=== PATIENT | male | born 1945 | race Caucasian/White ===

== ENCOUNTER 2017-10-12 08:50 | Emergency (ER) | payer MEDICARE, BC ==
[~2017-10-12] VITALS: Ht 177.8 cm; Wt 99.5 kg
[2017-10-12 09:00] VITALS: PULSE 87; RESP 16; TEMP 98.7; O2SAT 97
[2017-10-12] MEDS ORDERED: AMLO10TA2 PO (09:54)
[2017-10-12] MEDS ORDERED: LIDOCAINE 2%/EPINEPHrine 1:100,000 20ML MDV NERV BLOCK ONE (10:15)
[2017-10-12] MEDS ORDERED: BACT800T5 PO (10:45)
[2017-10-12] MEDS ORDERED: NORC5TAB PO (10:46)
--- NOTE | 2017-10-12 10:46 | PD ---
HPI . Skin problem Chief Complaint: Skin Problem Time Seen by Provider: 09:56 Travel History International Travel<30 days: No Contact w/Intl Traveler<30days: No Traveled to known affect area: No History of Present Illness HPI This patient presents with a chief complaint of an abscess in his right groin. Onset was 5 days ago. It is getting progressively worse and became acutely worse starting last night. He states that he squeezed it and that it drained a lot of malodorous, bloody-looking pus. He states that his pain is actually better since it drained. He has not run any fever or had any other systemic symptoms. PFSH Past Medical History Hypertension: Yes Tetanus Vaccination: > 5 Years Influenza Vaccination: Yes Past Surgical History Appendectomy: Yes Social History Alcohol Use: Yes (SOCIAL) Tobacco Use: Yes (1/2 PPD) Substance Use: No Allergies-Medications (Allergen,Severity, Reaction): Coded Allergies: No Known Allergies (Unverified , 10/12/17) Reported Meds & Prescriptions Reported Meds & Active Scripts Active [place] (Hydrocodone-Acetaminophen) 5 Mg-325 Mg Tab 1 Tab PO Q4H PRN Bactrim DS (Sulfamethoxazole-Trimethoprim) 800-160 Mg Tab 1 Tab PO BID Reported Amlodipine (Amlodipine Besylate) 10 Mg Tab 10 Mg PO DAILY Review of Systems Except as stated in HPI: all other systems reviewed are Neg Physical Exam Narrative GENERAL: Awake and alert and in no acute distress. SKIN: Warm and dry. Erythema and induration in the right groin. No crepitus. There is a punctate wound where it has been draining. HEAD: Normocephalic/atraumatic. EYES: Pupils are equal. Extraocular movements are intact. NECK: Normal range of motion. Supple. CARDIOVASCULAR: Regular rate and rhythm. RESPIRATORY: Nonlabored respirations. Normal sats. MUSCULOSKELETAL: Atraumatic. Normal muscle tone. NEUROLOGICAL: A and O 3. Nonfocal. PSYCHIATRIC: Appropriate mood and affect. Data Data Last Documented VS Vital Signs Date Time Temp Pulse Resp B/P (MAP) Pulse Ox O2 Delivery O2 Flow Rate FiO2 10/12/17 09:00 98.7 87 16 97 Orders Orders Lidocai-Epi 2%-1:100,000 Inj (Xylocaine- (10/12/17 10:15) [facility] Medical Decision Making Medical Screen Exam Complete: Yes Emergency Medical Condition: Yes Differential Diagnosis My differential diagnosis of abscess includes but is not limited to abscess, cyst, lipoma Narrative Course This patient presents with an abscess in his right groin. It has drained some prior to presentation. There is no evidence of gangrene such as crepitus. He does not have any systemic complaints. The abscess will be drained. He will be discharged with antibiotics and instructions to return in 2 days for a recheck. E-Forcse has been queried and reviewed. He is being discharged with a prescription for [place]. Procedures Procedure Narrative INCISION AND DRAINAGE OF ABSCESS: The area was prepped. A subcutaneous wheal of 1 % Xylocaine with epinephrine with a total number 15 mL was used to anesthetize the area properly. A number 11 scalpel was used to make a 1-cm incision across the most fluctuant area of the abscess. The abscess was drained and complex loculations were broken down. There was no significant purulent drainage. There were significant adhesions which were lysed. The wound was copiously irrigated with saline. The wound was packed then dressed. Patient advised to have packing removed in two days. Diagnosis Primary Impression: Abscess of right groin Patient Instructions: Abscess Incision and Drainage (DC), General Instructions Additional Instructions: Return in 2 days for recheck. Return sooner if you start getting worse. Med/Other Pt SpecificInfo: Prescription(s) given Scripts Hydrocodone-Acetaminophen ([place]) 5 Mg-325 Mg Tab 1 TAB PO Q4H Y for PAIN, #10 TAB 0 Refills Prov: Maida Menon MD 10/12/17 Sulfamethoxazole-Trimethoprim (Bactrim DS) 800-160 Mg Tab 1 TAB PO BID for Infection, #20 TAB 0 Refills Prov: Maida Menon MD 10/12/17 Disposition: 01 DISCHARGE HOME Condition: Stable Maida Menon MD Oct 12, 2017 10:46
[2017-10-12 11:00] VITALS: BP 167/81
[2017-10-12] MEDS ORDERED: SULFAMETHOXAZOLE-TRIMETHOPRIM DS 800-160 MG TAB PO ONE (11:00)
[2017-10-12] MEDS ORDERED: ACETAMINOPHEN/HYDROcodone 325 MG/5 MG TAB PO ONE (11:00)
== END 2017-10-12 11:32 | disposition home or self-care (01) ==
LOC: PHED 08:50
DX: L02.214 Cutaneous abscess of groin (principal); F17.200 Nicotine dependence, unspecified, uncomplicated; I10 Essential (primary) hypertension
CPT/HCPCS: 10060

== ENCOUNTER 2017-10-14 07:34 | Emergency (ER) | payer MEDICARE, BC ==
[~2017-10-14 07:34] MED LIST: AMLO10TA2 PO; BACT800T5 PO; NORC5TAB PO
[2017-10-14 07:38] VITALS: BP 137/92; PULSE 93; RESP 16; TEMP 98.9; O2SAT 95
--- NOTE | 2017-10-14 08:04 | PD ---
HPI Chief Complaint: Wound/Suture/Staple Re-Check Time Seen by Provider: 07:50 Travel History International Travel<30 days: No Contact w/Intl Traveler<30days: No Traveled to known affect area: No History of Present Illness HPI Patient is a 72 year old male who comes in to have the wound in his groin checked. He was here two days ago and had an abscess drained in the area. He has been taking antibiotics since then. He says overall, he feels like it has improved. He denies fever or chills. He says it [place] 5 [place] [address] He says it started as a little pimple and he tried to pop it. He denies abdominal pain, nausea or vomiting. He says he was taking hydrocodone for the pain, but stopped yesterday. Severity is mild. PFSH Past Medical History Diminished Hearing: No Hypertension: Yes Influenza Vaccination: Yes ?: Not Past Surgical History Appendectomy: Yes Social History Alcohol Use: Yes (SOCIAL) Tobacco Use: Yes (1/2 PPD) Substance Use: No Allergies-Medications (Allergen,Severity, Reaction): Coded Allergies: No Known Allergies (Unverified , 10/14/17) Reported Meds & Prescriptions Reported Meds & Active Scripts Active [place] (Hydrocodone-Acetaminophen) 5 Mg-325 Mg Tab 1 Tab PO Q4H PRN Bactrim DS (Sulfamethoxazole-Trimethoprim) 800-160 Mg Tab 1 Tab PO BID Reported Amlodipine (Amlodipine Besylate) 10 Mg Tab 10 Mg PO DAILY Review of Systems Except as stated in HPI: all other systems reviewed are Neg General / Constitutional: No: Fever, Chills HENT: No: Headaches, Lightheadedness Cardiovascular: No: Chest Pain or Discomfort Respiratory: No: Shortness of Breath Gastrointestinal: No: Nausea, Vomiting, Abdominal Pain Skin: Positive Lesions Neurologic: No: Weakness, Dizziness Physical Exam Narrative GENERAL: Awake and alert, in no acute distress. SKIN: Open abscess in the right groin. No surrounding erythema or warmth, no active drainage. Large area of induration surrounding the abscess. Tender to palpation. HEAD: Atraumatic. Normocephalic. EYES: Pupils equal and round. No scleral icterus. No injection or drainage. ENT: Mucous membranes pink and moist. NECK: Trachea midline. No JVD. CARDIOVASCULAR: Regular rate and rhythm. No murmur appreciated. RESPIRATORY: No accessory muscle use. Clear to auscultation. Breath sounds equal bilaterally. GASTROINTESTINAL: Abdomen soft, non-tender, nondistended. MUSCULOSKELETAL: No obvious deformities. No clubbing. No cyanosis. No edema. NEUROLOGICAL: Awake and alert. No obvious cranial nerve deficits. Motor grossly within normal limits. Normal speech. PSYCHIATRIC: Appropriate mood and affect; insight and judgment normal. Data Data Last Documented VS Vital Signs Date Time Temp Pulse Resp B/P (MAP) Pulse Ox O2 Delivery O2 Flow Rate FiO2 10/14/17 09:35 80 16 142/70 (94) 96 Room Air 10/14/17 07:38 98.9 Orders Orders Complete Blood Count With Diff (10/14/17 07:54) Comprehensive Metabolic Panel (10/14/17 07:54) Ct Pelvis W Iv Contrast(Rout) (10/14/17 ) Iohexol 350 Inj (Omnipaque 350 Inj) (10/14/17 08:54) Labs Laboratory Tests Test 10/14/17 08:05 White Blood Count 7.8 TH/MM3 Red Blood Count 5.02 MIL/MM3 Hemoglobin 15.7 GM/DL Hematocrit 45.3 % Mean Corpuscular Volume 90.2 FL Mean Corpuscular Hemoglobin 31.2 PG Mean Corpuscular Hemoglobin Concent 34.5 % Red Cell Distribution Width 14.3 % Platelet Count 153 TH/MM3 Mean Platelet Volume 8.6 FL Neutrophils (%) (Auto) 65.4 % Lymphocytes (%) (Auto) 20.3 % Monocytes (%) (Auto) 9.2 % Eosinophils (%) (Auto) 4.3 % Basophils (%) (Auto) 0.8 % Neutrophils # (Auto) 5.1 TH/MM3 Lymphocytes # (Auto) 1.6 TH/MM3 Monocytes # (Auto) 0.7 TH/MM3 Eosinophils # (Auto) 0.3 TH/MM3 Basophils # (Auto) 0.1 TH/MM3 CBC Comment DIFF FINAL Differential Comment Blood Urea Nitrogen 15 MG/DL Creatinine 1.10 MG/DL Random Glucose 107 MG/DL Total Protein 8.4 GM/DL Albumin 3.1 GM/DL Calcium Level 8.6 MG/DL Alkaline Phosphatase 87 U/L Aspartate Amino Transf (AST/SGOT) 13 U/L Alanine Aminotransferase (ALT/SGPT) 17 U/L Total Bilirubin 0.5 MG/DL Sodium Level 136 MEQ/L Potassium Level 4.4 MEQ/L Chloride Level 105 MEQ/L Carbon Dioxide Level 23.1 MEQ/L Anion Gap 8 MEQ/L Estimat Glomerular Filtration Rate 66 ML/MIN MDM Medical Decision Making Medical Screen Exam Complete: Yes Emergency Medical Condition: Yes Medical Record Reviewed: Yes Differential Diagnosis residual abscess vs cellulitis vs lymphadenopathy Narrative Course Patient is a 72 year old male who comes in to have his abscess checked. Exam shows no further fluctuance or erythema, however, there is a large area of induration. IV established, labs sent. Labs show no acute abnormalities. CT pelvis performed shows induration at the base of the penis. Last [address] 10/14/17 0000 Signed Impressions: CONCLUSION: 1. Air probably where packing was removed with induration base of the penis an d perineum. Findings were discussed with Dr. Sherman on today's date.. I spoke with Dr. Mays or urology regarding the patient. He says the patient can continue on the Bactrim and follow up in the office tuesday. Patient advised of this. Advised to return at any time for any worsening symptoms. Diagnosis Primary Impression: Abscess Referrals: Kory Mays DO call for appointment Additional Instructions: Call Dr. Mays to schedule an appointment for Tuesday. Finish your antibiotics. Keep the area clean and dry. Return to the ED as needed for any worsening symptoms. Disposition: 01 DISCHARGE HOME Condition: Stable Sondra Sherman MD Oct 14, 2017 08:04
[2017-10-14 08:12] LABS: AUTOMATED NEUTROPHIL # 5.1 TH/MM3 (1.8-7.7); BASOPHIL # 0.1 TH/MM3 (0-0.2); BASOPHIL % 0.8 % (0.0-2.0); EOSINOPHIL # 0.3 TH/MM3 (0-0.4); EOSINOPHIL % 4.3 % (0.0-4.0); HEMATOCRIT 45.3 % (39.0-51.0); HEMOGLOBIN 15.7 GM/DL (13.0-17.0); LYMPH % 20.3 % (9.0-44.0); LYMPHOCYTE # 1.6 TH/MM3 (1.0-4.8); MEAN CELL VOLUME 90.2 FL (80.0-100.0); MEAN CORPUSCULAR HEMOGLOBIN 31.2 PG (27.0-34.0); MEAN CORPUSCULAR HGB CONC 34.5 % (32.0-36.0); MEAN PLATELET VOLUME 8.6 FL (7.0-11.0); MONO % 9.2 % (0.0-8.0); MONOCYTE # 0.7 TH/MM3 (0-0.9); NEUT % 65.4 % (16.0-70.0); PLATELET COUNT 153 TH/MM3 (150-450); RED BLOOD COUNT 5.02 MIL/MM3 (4.50-5.90); RED CELL DISTRIBUTION WIDTH 14.3 % (11.6-17.2); WHITE BLOOD COUNT 7.8 TH/MM3 (4.0-11.0)
[2017-10-14 08:20] LABS: CHLORIDE 105 MEQ/L (98-107); SODIUM (NA) 136 MEQ/L (136-145)
[2017-10-14 08:23] LABS: ALBUMIN 3.1 GM/DL (3.4-5.0); BICARBONATE 23.1 MEQ/L (21.0-32.0); BLOOD UREA NITROGEN 15 MG/DL (7-18); CALCIUM 8.6 MG/DL (8.5-10.1); GLUCOSE,RANDOM 107 MG/DL (74-106)
[2017-10-14 08:26] LABS: ALT (GPT) 17 U/L (12-78)
[2017-10-14 08:27] LABS: AST (GOT) 13 U/L (15-37); GLOMERULAR FILTRATION RATE 66 ML/MIN (>89)
[2017-10-14 08:28] LABS: TOTAL BILIRUBIN ADULT 0.5 MG/DL (0.2-1.0); TOTAL PROTEIN 8.4 GM/DL (6.4-8.2)
[2017-10-14 08:29] LABS: ALKALINE PHOSPHATASE 87 U/L (45-117)
[2017-10-14] MEDS ORDERED: IOHEXOL 350 MG/ML 10 ML VIAL (for RAD DIAG) IVCONTRAST ONE (08:54)
--- NOTE | 2017-10-14 09:17 | RADRPT ---
EXAM DATE: 10/14/2017 8:54 AM EDT AGE/SEX: 72 years / Male INDICATIONS: Evaluate right groin abscess. Drained and packed 2 days ago, packing removed today. CLINICAL DATA: This is the patient's initial encounter. Patient reports that signs and symptoms have been present for 1 week and indicates a pain score of 4/10. MEDICAL/SURGICAL HISTORY: Hypertension. Appendectomy. RADIATION DOSE: 16.98 CTDI (mGy) COMPARISON: No prior exams available for comparison. TECHNIQUE: Multiple contiguous helical axial images were obtained through pelvis following bolus inf usion of 90 ml Omnipaque 350 (iohexol) nonionic water-soluble contrast as a single exam dose. Imag es were obtained using multiple row detector helical technique. . Using automated exposure control an d adjustment of the mA and/or kV according to patient size, radiation dose was kept as low as reasona patricia achievable to obtain optimal diagnostic quality images. FINDINGS: There are no prior studies for comparison. Surgical packing has been removed from a small abscess in the medial thigh by history. There is a small collection of air probably within the packing was at the base of the penis outside o f the scrotum. There is no residual fluid evident. The pelvic contents otherwise unremarkable exception of mild diverticular disease. CONCLUSION: 1. Air probably where packing was removed with induration base of the penis and perineum. Findings were discussed with Dr. Sherman on today's date.. Electronically signed by: Dino Oakley MD 10/14/2017 9:16 AM EDT
[2017-10-14 09:35] VITALS: BP 142/70; PULSE 80; RESP 16; O2SAT 96
== END 2017-10-14 10:27 | disposition home or self-care (01) ==
LOC: PHED 07:34
DX: L02.214 Cutaneous abscess of groin (principal); I10 Essential (primary) hypertension; F17.210 Nicotine dependence, cigarettes, uncomplicated; Z79.2 Long term (current) use of antibiotics; Z79.899 Other long term (current) drug therapy
CPT/HCPCS: 72193; 80053; 85025; 99284; Q9967